=== PATIENT | male | born 1940 | race Caucasian/White ===

== ENCOUNTER → 2020-02-13 | Outpatient (CLI) | payer MEDICARE ==
[~2020-02-13] MED LIST: OMNICEF 300 MG300 MG PO; PREDNISONE50 MG PO; ZITHROMAX250 MG PO
== END ==
LOC: HEART 5 08:36
DX: R06.02 Shortness of breath (principal); I10 Essential (primary) hypertension; I07.1 Rheumatic tricuspid insufficiency
CPT/HCPCS: 93306

== ENCOUNTER 2020-08-05 14:11 | Emergency (ER) | payer MEDICARE ==
[2020-08-05 17:48] LABS: HEMOGLOBIN 13.7 gm/dl (14.0-17.5); RED BLOOD COUNT 4.47 M/UL (4.20-5.50); WHITE BLOOD COUNT 10.2 K/UL (4.5-11.0)
== END 2020-08-05 18:35 | disposition home or self-care (01) ==
LOC: ER1 14:11
PROVIDERS: Physician Assistant Medical
DX: R07.89 Other chest pain (principal); J44.9 Chronic obstructive pulmonary disease, unspecified
CPT/HCPCS: 71111; 80053; 82550; 82553; 83874; 84484; 85025; 93005; 99284

== ENCOUNTER 2020-08-22 17:02 | Emergency (ER) | payer MEDICARE ==
[2020-08-22 18:23] LABS: HEMOGLOBIN 12.6 gm/dl (14.0-17.5); RED BLOOD COUNT 4.1 M/UL (4.20-5.50); WHITE BLOOD COUNT 7.8 K/UL (4.5-11.0)
[2020-08-22 18:44] LABS: BUN/CREATININE RATIO 13 (0-10)
== END 2020-08-22 23:30 | disposition home or self-care (01) ==
LOC: ER1 17:02
PROVIDERS: Physician Assistant
DX: R06.00 Dyspnea, unspecified (principal); R60.0 Localized edema; E78.5 Hyperlipidemia, unspecified; J44.9 Chronic obstructive pulmonary disease, unspecified; K21.9 Gastro-esophageal reflux disease without esophagitis; I10 Essential (primary) hypertension; Z20.822 Contact with and (suspected) exposure to COVID-19; Z87.891 Personal history of nicotine dependence; Z79.899 Other long term (current) drug therapy
CPT/HCPCS: 0240U; 71045; 80053; 82550; 82553; 83874; 83880; 84484; 85025; 93005; 94664; 99285; Q9967

== ENCOUNTER → 2020-08-29 | Outpatient (CLI) | payer MEDICARE | LOC: HEART 5 07:30 | DX: I20.8 Other forms of angina pectoris (principal); R06.02 Shortness of breath; I10 Essential (primary) hypertension; R94.39 Abnormal result of other cardiovascular function study | CPT/HCPCS: 78452; A9502; J2785 ==

== ENCOUNTER 2021-06-09 02:42 | Inpatient (IN) | payer MEDICARE ==
[~2021-06-09] VITALS: Ht 190.5 cm; Wt 99.8 kg
[~2021-06-09 02:42] MED LIST changes: +AMOX TR-K CLV1 EAC4 PO; +PREDNISONE20 MG PO
[2021-06-09 03:32] LABS: HEMOGLOBIN 12.2 gm/dl (14.0-17.5); RED BLOOD COUNT 4.05 M/UL (4.20-5.50); WHITE BLOOD COUNT 27.9 K/UL (4.5-11.0)
[2021-06-09] MEDS ORDERED: IPRAT-ALBUT 0.5-3 ML INH (10:01)
[2021-06-09] MEDS ORDERED: PROAIR HFA8.5 GM INH (10:02)
[2021-06-09] MEDS ORDERED: CALCIUM 500 +1 EAC2 PO (10:02)
[2021-06-09] MEDS ORDERED: B-12500 MCG PO (10:03)
[2021-06-09] MEDS ORDERED: ARTIFICIAL TEAR30 ML EYEBOTH (10:14)
[2021-06-09] MEDS ORDERED: DIFLUPREDNATE5 ML EYERT (10:15)
[2021-06-09] MEDS ORDERED: PRAZOSIN HCL5 MG PO (10:16)
[2021-06-09] MEDS ORDERED: ROPINIROLE HCL0.5 MG PO (10:16)
[2021-06-09] MEDS ORDERED: NASAL SPRAY44 ML (10:18)
[2021-06-09] MEDS ORDERED: ACETAMINOPHEN500 MG PO (10:19)
[2021-06-09] MEDS ORDERED: ASPIRIN EC81 MG PO (10:20)
[2021-06-09] MEDS ORDERED: TRIPLE ANTIBIOT28 G1 TP (10:23)
[2021-06-09] MEDS ORDERED: BENZONATATE100 MG PO (10:24)
[2021-06-09] MEDS ORDERED: ANTI-ITCH 1%-0.28 GM TP (10:26)
[2021-06-09] MEDS ORDERED: ANTI-ITCH28 GM TP (10:27)
[2021-06-09] MEDS ORDERED: LYSINE500 MG PO (10:27)
[2021-06-09] MEDS ORDERED: MELATONIN5 M5 PO (10:28)
[2021-06-09] MEDS ORDERED: PREDNISONE1 MG PO (10:30)
[2021-06-09] MEDS ORDERED: PSYLLIUM SEED480 GM PO (10:31)
[2021-06-09] MEDS ORDERED: ACIDOPHILUS1 EAC1 PO (10:33)
[2021-06-09] MEDS ORDERED: LORATADINE10 MG PO (10:34)
[2021-06-09] MEDS ORDERED: LEVOTHYROXINE25 MC1 PO (10:34)
[2021-06-09] MEDS ORDERED: METOPROLOL TART50 MG PO (10:39)
[2021-06-09] MEDS ORDERED: ARTHRITIS HOT P TP (10:39)
[2021-06-09] MEDS ORDERED: MONTELUKAST SOD10 MG PO (10:40)
[2021-06-10 02:11] LABS: HEMOGLOBIN 11.3 gm/dl (14.0-17.5); RED BLOOD COUNT 3.76 M/UL (4.20-5.50); WHITE BLOOD COUNT 23.9 K/UL (4.5-11.0)
[2021-06-11 02:15] LABS: HEMOGLOBIN 11.6 gm/dl (14.0-17.5); RED BLOOD COUNT 3.9 M/UL (4.20-5.50); WHITE BLOOD COUNT 18.5 K/UL (4.5-11.0)
[2021-06-12 02:12] LABS: HEMOGLOBIN 11.4 gm/dl (14.0-17.5); RED BLOOD COUNT 3.89 M/UL (4.20-5.50); WHITE BLOOD COUNT 15.7 K/UL (4.5-11.0)
[2021-06-13 03:24] LABS: HEMOGLOBIN 10.9 gm/dl (14.0-17.5); RED BLOOD COUNT 3.71 M/UL (4.20-5.50); WHITE BLOOD COUNT 16.6 K/UL (4.5-11.0)
[2021-06-15 02:45] LABS: HEMOGLOBIN 11.2 gm/dl (14.0-17.5); RED BLOOD COUNT 3.78 M/UL (4.20-5.50); WHITE BLOOD COUNT 13.2 K/UL (4.5-11.0)
--- NOTE | 2021-06-15 09:15 | NUR ---
PER CM: PATIENTS HOME O2 CANNOT BE SETUP UNTIL WEDNESDAY, JUNE 16, DUE TO VA STATUS.
[2021-06-15] MEDS ORDERED: SYMBICORT 16010.2 GM INH (13:02)
[2021-06-15] MEDS ORDERED: LOPRESSOR 50 MG50 MG PO (13:02)
[2021-06-15] MEDS ORDERED: FUROSEMIDE40 MG PO (13:02)
[2021-06-15] MEDS ORDERED: NIFEDIPINE ER60 M1 PO (13:10)
[2021-06-15] MEDS ORDERED: HYGROTON TAB 2525 MG PO (13:10)
[2021-06-16 02:49] LABS: HEMOGLOBIN 11.7 gm/dl (14.0-17.5); RED BLOOD COUNT 3.92 M/UL (4.20-5.50); WHITE BLOOD COUNT 14.6 K/UL (4.5-11.0)
--- NOTE | 2021-06-16 11:33 | NUR ---
PT IS 85% RESTING ON ROOM AIR. PT IS 84% WALKING ON ROMM AIR.
[2021-06-17 03:25] LABS: HEMOGLOBIN 11.3 gm/dl (14.0-17.5); RED BLOOD COUNT 3.87 M/UL (4.20-5.50)
--- NOTE | 2021-06-17 14:25 | NUR ---
PT HAS [facility] AND CURRENTLY ESTABLISHED WITH THEM
--- NOTE | 2021-06-17 14:52 | NUR ---
[employer] CONTACTED TO SEE WHEN DELIVERING O2 FOR PT. ELIZABETH BERNSTEIN STATES PT. NEEDS DISCHARGED AND FOR PT. TO CALL THEM FROM HIS HOUSE SO THE PT. CAN LET THEM IN TO SET UP HIS HOME OXYGEN.
== END 2021-06-17 15:02 | disposition home health service (06) | DRG 871 ==
LOC: ER1 02:42 → PROG CARE 04:35 → M/S 04:35 → CDU 04:35 → PROG CARE 08:27 → M/S 06-16 14:02
PROVIDERS: Family Medicine; Internal Medicine; ADMIT Internal Medicine Infectious Disease
PROC: 3E03329 Introduction of Other Anti-infective into Peripheral Vein, Percutaneous Approach (ICD-10-PCS; principal; 2021-06-09)
PROC: B24BZZZ Ultrasonography of Heart with Aorta (ICD-10-PCS; 2021-06-09)
PROC: 5A09357 Assistance with Respiratory Ventilation, Less than 24 Consecutive Hours, Continuous Positive Airway Pressure (ICD-10-PCS; 2021-06-10)
PROC: 5A0935A Assistance with Respiratory Ventilation, Less than 24 Consecutive Hours, High Flow/Velocity Cannula (ICD-10-PCS; 2021-06-10)
PROC: 5A09357 Assistance with Respiratory Ventilation, Less than 24 Consecutive Hours, Continuous Positive Airway Pressure (ICD-10-PCS; 2021-06-10)
PROC: 5A0935A Assistance with Respiratory Ventilation, Less than 24 Consecutive Hours, High Flow/Velocity Cannula (ICD-10-PCS; 2021-06-11)
PROC: 5A09357 Assistance with Respiratory Ventilation, Less than 24 Consecutive Hours, Continuous Positive Airway Pressure (ICD-10-PCS; 2021-06-12)
PROC: 5A0945A Assistance with Respiratory Ventilation, 24-96 Consecutive Hours, High Flow/Velocity Cannula (ICD-10-PCS; 2021-06-14)
PROC: 5A09357 Assistance with Respiratory Ventilation, Less than 24 Consecutive Hours, Continuous Positive Airway Pressure (ICD-10-PCS; 2021-06-16)
DX: A41.9 Sepsis, unspecified organism (principal); J18.9 Pneumonia, unspecified organism; I50.33 Acute on chronic diastolic (congestive) heart failure; J96.21 Acute and chronic respiratory failure with hypoxia; J44.0 Chronic obstructive pulmonary disease with (acute) lower respiratory infection; J44.1 Chronic obstructive pulmonary disease with (acute) exacerbation; I13.0 Hypertensive heart and chronic kidney disease with heart failure and stage 1 through stage 4 chronic kidney disease, or unspecified chronic kidney disease; N17.9 Acute kidney failure, unspecified; K52.1 Toxic gastroenteritis and colitis; Z20.822 Contact with and (suspected) exposure to COVID-19; R65.20 Severe sepsis without septic shock; N40.0 Benign prostatic hyperplasia without lower urinary tract symptoms; M47.896 Other spondylosis, lumbar region; D72.823 Leukemoid reaction; T36.0X5A Adverse effect of penicillins, initial encounter; K21.9 Gastro-esophageal reflux disease without esophagitis; I07.1 Rheumatic tricuspid insufficiency; E03.9 Hypothyroidism, unspecified; N18.30 Chronic kidney disease, stage 3 unspecified; Z96.82 Presence of neurostimulator; Z79.01 Long term (current) use of anticoagulants; Z79.82 Long term (current) use of aspirin; Z82.49 Family history of ischemic heart disease and other diseases of the circulatory system; Z87.891 Personal history of nicotine dependence
CPT/HCPCS: ECHO; 0240U; 36415; 36600; 71045; 71046; 80048; 80053; 80202; 82550; 82553; 82803; 83605; 83735; 83880; 84100; 84484; 85025; 85027; 85610; 87040; 87081; 93005; 93306; 94640; 94660; 94664; 94760; 96374; 96375; 97110-GP-CQ; 97116; 97116-GP-CQ; 97162; 97530-GP-CQ; 99285; C9113; J0456; J0692; J0696; J1205; J1335; J1650; J1940; J2185; J2270; J2920; J2930; J3370; J3475; J7030; J7070

== ENCOUNTER → 2021-07-02 | Outpatient (CLI) | payer MEDICARE ==
[~2021-07-02] MED LIST changes: +ACETAMINOPHEN500 MG PO; +ACIDOPHILUS1 EAC1 PO; +ANTI-ITCH 1%-0.28 GM TP; +ANTI-ITCH28 GM TP; +ARTHRITIS HOT P TP; +ARTIFICIAL TEAR30 ML EYEBOTH; +ASPIRIN EC81 MG PO; +B-12500 MCG PO; +BENZONATATE100 MG PO; +CALCIUM 500 +1 EAC2 PO; +DIFLUPREDNATE5 ML EYERT; +FUROSEMIDE40 MG PO; +HYGROTON TAB 2525 MG PO; +IPRAT-ALBUT 0.5-3 ML INH; +LEVOTHYROXINE25 MC1 PO; +LOPRESSOR 50 MG50 MG PO; +LORATADINE10 MG PO; +LYSINE500 MG PO; +MELATONIN5 M5 PO; +METOPROLOL TART50 MG PO; +MONTELUKAST SOD10 MG PO; +NASAL SPRAY44 ML; +NIFEDIPINE ER60 M1 PO; +PRAZOSIN HCL5 MG PO; +PREDNISONE1 MG PO; +PROAIR HFA8.5 GM INH; +PSYLLIUM SEED480 GM PO; +ROPINIROLE HCL0.5 MG PO; +SYMBICORT 16010.2 GM INH; +TRIPLE ANTIBIOT28 G1 TP
== END ==
LOC: HEART 5 14:41
DX: J44.0 Chronic obstructive pulmonary disease with (acute) lower respiratory infection (principal); J18.9 Pneumonia, unspecified organism
CPT/HCPCS: 71046; 94010

== ENCOUNTER 2021-07-10 16:23 | Observation (INO) | payer MEDICARE ==
[~2021-07-10] VITALS: Ht 180.3 cm; Wt 81.6 kg
[~2021-07-10 16:23] MED LIST changes: -LEVOTHYROXINE25 MC1 PO; +SYNTHROID25 MCG PO
[2021-07-10 17:22] LABS: HEMOGLOBIN 12.2 gm/dl (14.0-17.5); RED BLOOD COUNT 4.06 M/UL (4.20-5.50); WHITE BLOOD COUNT 10.7 K/UL (4.5-11.0)
[2021-07-11 04:53] LABS: HEMOGLOBIN 11.2 gm/dl (14.0-17.5); RED BLOOD COUNT 3.76 M/UL (4.20-5.50); WHITE BLOOD COUNT 8.8 K/UL (4.5-11.0)
[2021-07-11] MEDS ORDERED: FUROSEMIDE20 MG PO (11:50)
[2021-07-11] MEDS ORDERED: WIXELA 250-501 EACH INH (11:52)
[2021-07-11] MEDS ORDERED: FLONASE ALLER15.8 ML (11:52)
[2021-07-11] MEDS ORDERED: FINASTERIDE5 MG PO (11:52)
[2021-07-11] MEDS ORDERED: DULOXETINE HCL30 MG PO (11:52)
[2021-07-11] MEDS ORDERED: LORATADINE10 MG PO (11:52)
[2021-07-11] MEDS ORDERED: PRAVASTATIN SOD20 MG PO (11:53)
[2021-07-11] MEDS ORDERED: POTASSIUM CHLO20 ME2 PO (11:53)
[2021-07-11] MEDS ORDERED: OMEPRAZOLE20 M2 PO (11:53)
[2021-07-11] MEDS ORDERED: OMNICEF 300 MG300 MG PO (14:27)
[2021-07-11] MEDS ORDERED: HYDRALAZINE HCL25 MG PO (15:26)
== END 2021-07-11 16:58 | disposition home or self-care (01) ==
LOC: ER1 16:23 → M/S 18:13 → CDU 18:13 → M/S 19:18
PROVIDERS: Emergency Medicine; Physician Assistant; ADMIT Internal Medicine
DX: R00.8 Other abnormalities of heart beat (principal); I49.3 Ventricular premature depolarization; E11.22 Type 2 diabetes mellitus with diabetic chronic kidney disease; I13.0 Hypertensive heart and chronic kidney disease with heart failure and stage 1 through stage 4 chronic kidney disease, or unspecified chronic kidney disease; I50.32 Chronic diastolic (congestive) heart failure; N18.30 Chronic kidney disease, stage 3 unspecified; J44.0 Chronic obstructive pulmonary disease with (acute) lower respiratory infection; J20.9 Acute bronchitis, unspecified; E03.9 Hypothyroidism, unspecified; N40.0 Benign prostatic hyperplasia without lower urinary tract symptoms; K27.9 Peptic ulcer, site unspecified, unspecified as acute or chronic, without hemorrhage or perforation; Z86.69 Personal history of other diseases of the nervous system and sense organs; Z87.891 Personal history of nicotine dependence; Z87.19 Personal history of other diseases of the digestive system; Z96.82 Presence of neurostimulator; Z90.2 Acquired absence of lung [part of]; Z66 Do not resuscitate; Z79.51 Long term (current) use of inhaled steroids; Z79.890 Hormone replacement therapy; Z79.82 Long term (current) use of aspirin; Z79.899 Other long term (current) drug therapy
CPT/HCPCS: 36415; 71045; 78580; 80053; 82550; 82553; 83735; 83880; 84439; 84443; 84484; 85025; 85379; 93005; 93970; 99285; A9540; G0378; J0696; J1650

== ENCOUNTER 2021-07-11 22:21 | Emergency (ER) | payer MEDICARE ==
[~2021-07-11 22:21] MED LIST changes: +DULOXETINE HCL30 MG PO; +FINASTERIDE5 MG PO; +FLONASE ALLER15.8 ML; +FUROSEMIDE20 MG PO; +HYDRALAZINE HCL25 MG PO; +OMEPRAZOLE20 M2 PO; +POTASSIUM CHLO20 ME2 PO; +PRAVASTATIN SOD20 MG PO; +WIXELA 250-501 EACH INH
[2021-07-12 00:45] LABS: HEMOGLOBIN 12.5 gm/dl (14.0-17.5)
[2021-07-12 00:47] LABS: RED BLOOD COUNT 4.19 M/UL (4.20-5.50); WHITE BLOOD COUNT 11.4 K/UL (4.5-11.0)
== END 2021-07-12 03:00 | disposition home or self-care (01) ==
LOC: ER1 22:21
PROVIDERS: Physician Assistant Medical
DX: R00.2 Palpitations (principal); I12.9 Hypertensive chronic kidney disease with stage 1 through stage 4 chronic kidney disease, or unspecified chronic kidney disease; N18.9 Chronic kidney disease, unspecified; J44.9 Chronic obstructive pulmonary disease, unspecified; Z87.891 Personal history of nicotine dependence
CPT/HCPCS: 71045; 80053; 82550; 82553; 83735; 83880; 84100; 84439; 84443; 84484; 85025; 93005; 99285

== ENCOUNTER → 2021-08-05 | Outpatient (CLI) | payer MEDICARE | LOC: HEART 5 07-28 09:15 | DX: I49.3 Ventricular premature depolarization (principal); I47.2 Ventricular tachycardia; I10 Essential (primary) hypertension | CPT/HCPCS: 78452; A9502; J2785 ==

== ENCOUNTER 2021-08-14 12:04 | Emergency (ER) | payer MEDICARE ==
[2021-08-14 13:00] LABS: HEMOGLOBIN 12.2 gm/dl (14.0-17.5); RED BLOOD COUNT 4.23 M/UL (4.20-5.50); WHITE BLOOD COUNT 9.2 K/UL (4.5-11.0)
== END 2021-08-14 15:47 | disposition home or self-care (01) ==
LOC: ER1 12:04
PROVIDERS: Emergency Medicine
DX: R00.1 Bradycardia, unspecified (principal); R06.02 Shortness of breath
CPT/HCPCS: 71045; 80048; 83880; 84484; 85025; 99285

== ENCOUNTER 2021-10-06 11:28 | Emergency (ER) | payer OTHER ==
[2021-10-06 12:22] LABS: HEMOGLOBIN 12.2 gm/dl (14.0-17.5); RED BLOOD COUNT 4.18 M/UL (4.20-5.50); WHITE BLOOD COUNT 8.8 K/UL (4.5-11.0)
[2021-10-06] MEDS ORDERED: LASIX20 MG PO (14:22)
== END 2021-10-06 14:30 | disposition home or self-care (01) ==
LOC: ER1 11:28
PROVIDERS: Physician Assistant
DX: I13.0 Hypertensive heart and chronic kidney disease with heart failure and stage 1 through stage 4 chronic kidney disease, or unspecified chronic kidney disease (principal); I50.9 Heart failure, unspecified; N18.9 Chronic kidney disease, unspecified; E78.5 Hyperlipidemia, unspecified
CPT/HCPCS: 71045; 80053; 82550; 82553; 83880; 84484; 85025; 93005; 96374; 99285; J1940

== ENCOUNTER → 2021-10-23 | Outpatient (CLI) | payer MEDICARE ==
[~2021-10-23] MED LIST changes: +LASIX20 MG PO
== END ==
LOC: EXRD 09-24 16:00
DX: N18.9 Chronic kidney disease, unspecified (principal)
CPT/HCPCS: 76775